=== PATIENT | female | born 1985 | race Two or more races ===

== ENCOUNTER 2017-03-22 05:36 | Inpatient (IN) | payer MEDICAID ==
[~2017-03-22] VITALS: Ht 157.5 cm; Wt 98.6 kg
[~2017-03-22 05:36] MED LIST: ADVIL LIQUI-GE200 M1 PO; FIBER500 M1 PO; IBUPROFEN800 M1 PO; PERCOCET 5-3251 EACH PO; PERCOCET 5/3251 TAB PO; PRENATABS RX T1 EACH PO; PRENATAL1 EACH PO
[2017-03-22 07:16] LABS: BASO % 0.1 % (0-2); EOS % 0.3 % (0-7); HGB-HEMOGLOBIN 13.7 gm/dl (12.0-15.5); IMMATURE GRANULOCYTES ABSOLUTE 0.03 tho/cmm (0-0.03); IMMATURE GRANULOCYTES PERCENT 0.4 % (0-0.3); LYMPH % 28.8 % (20-45); MCH (MEAN CORPUSCULAR HGB) 30.5 pg (28.0-32.0); MCHC MEAN CORPUSCULAR HGB CONC 34.3 % (32.0-36.0); MCV (MEAN CELL VOLUME) 89.1 fl (82.0-96.0); MEAN PLATELET VOLUME 10.6 cmc (9.4-12.4); MONOCYTE ABSOLUTE COUNT 0.4 tho/cmm (0.0-1.2); NEUTROPHIL ABSOLUTE COUNT 4.5 tho/cmm (1.6-8.0); NEUTROPHIL-AUTOMATED 4.5 tho/cmm (1.6-8.0); NEUTROPHILS % 64.4 % (40-80); PLATELET COUNT 193 tho/cmm (150-450); RED BLOOD COUNT 4.49 mil/cmm (4.00-5.20); RED CELL DISTRIBUTION WIDTH 15.2 % (12.4-16.4)
[2017-03-22] MEDS ORDERED: FEROSUL325 M1 PO (07:40)
[2017-03-23 06:31] LABS: BASO % 0.1 % (0-2); EOS % 0.5 % (0-7); HCT-HEMATOCRIT 36.7 % (34.0-49.0); HGB-HEMOGLOBIN 12.2 gm/dl (12.0-15.5); IMMATURE GRANULOCYTES ABSOLUTE 0.03 tho/cmm (0-0.03); IMMATURE GRANULOCYTES PERCENT 0.4 % (0-0.3); LYMPH % 31.3 % (20-45); LYMPH ABSOLUTE COUNT 2.7 tho/cmm (0.8-4.5); MCHC MEAN CORPUSCULAR HGB CONC 33.2 % (32.0-36.0); MCV (MEAN CELL VOLUME) 90.4 fl (82.0-96.0); MEAN PLATELET VOLUME 10.2 cmc (9.4-12.4); MONO % 5.9 % (0-12); MONOCYTE ABSOLUTE COUNT 0.5 tho/cmm (0.0-1.2); NEUTROPHIL ABSOLUTE COUNT 5.3 tho/cmm (1.6-8.0); NEUTROPHIL-AUTOMATED 5.3 tho/cmm (1.6-8.0); NEUTROPHILS % 61.8 % (40-80); PLATELET COUNT 157 tho/cmm (150-450); RED BLOOD COUNT 4.06 mil/cmm (4.00-5.20); RED CELL DISTRIBUTION WIDTH 15.2 % (12.4-16.4); WHITE BLOOD COUNT 8.5 tho/cmm (4.0-10.0)
[2017-03-24] MEDS ORDERED: IBUPROFEN800 M1 PO (22:28)
[2017-03-24] MEDS ORDERED: PERCOCET 5-3251 EACH PO (22:28)
== END 2017-03-25 10:44 | DRG 766 ==
LOC: LDR 05:36 → OBGD 06:11 → LDR 06:11 → OBGD 10:05 → LDR 10:05 → OBGD 03-25 10:44 → LDR 03-28 08:05
PROVIDERS: ADMIT Obstetrics & Gynecology
PROC: 10D00Z1 Extraction of Products of Conception, Low, Open Approach (ICD-10-PCS; principal; 2017-03-23)
DX: O34.211 Maternal care for low transverse scar from previous cesarean delivery (principal); N85.8 Other specified noninflammatory disorders of uterus; Z3A.39 39 weeks gestation of pregnancy; Z37.0 Single live birth; O99.824 Streptococcus B carrier state complicating childbirth
CPT/HCPCS: J0690; J1170; J2590; J2795; J7050; J7121